=== PATIENT | female | born 1955 | race Caucasian/White ===

== ENCOUNTER 2019-11-18 13:52 | Inpatient (IN) | payer OTHER ==
[2019-11-18] MEDS ORDERED: DEXTROSE 50% SYRINGE 50 ML IVP STA (13:58)
[2019-11-18] MEDS ORDERED: NALOXONE 0.4 MG/ML 1 ML VIAL IVP STA (13:59)
[2019-11-18] MEDS ORDERED: PANTOPRAZOLE 40 MG/10 ML VIAL IVP STA (14:00)
[2019-11-18 14:02] LABS: Glucose,Whole Blood 49 mg/dL (75-99)
[2019-11-18 14:02] LABS: Glucose,Whole Blood 50 mg/dL (75-99)
--- NOTE | 2019-11-18 14:06 | ED ---
General Adult HPI - General Chief complaint: GI Bleed Stated complaint: Poss Stroke Time Seen by Provider: 11/18/19 13:58 Source: patient Mode of arrival: ambulatory Limitations: physical limitation - History of Present Illness Initial comments: Dictation was produced using [employer] dictation software. please excuse any grammatical, word or spelling errors. This patient was cared for during a federal and state declared state of emergency secondary to Covid 19 Chief Complaint: 63-year-old female brought in by EMS for generalized weakness. History of Present Illness: 63-year-old female she presents to emergency department via EMS for generalized weakness. Patient states she did feel weak for the last several days. Patient has had a GI bleed that has been managed outpatient for the last couple weeks. Patient is a poor historian at this time. EMS reports that patient had stable vitals. They're concerned about possible CVA given the patient has a history of CVA. Patient has any numbness to to the arms or legs. She states she feels very weak. Denies any pain complaints. Patient has a history of liver cirrhosis. She denies any vomiting. The ROS documented in this emergency department record has been reviewed and co nfirmed by me. Those systems with pertinent positive or negative responses have been documented in the HPI. All other systems are other negative and/or noncontributory. PHYSICAL EXAM: General Impression: Alert and oriented x3, pale, mottled skin, lethargic HEENT: Normocephalic atraumatic, extra-ocular movements intact, pupils equal and reactive to light bilaterally, mucous membranes moist. Cardiovascular: Heart regular rate and rhythm Chest: Able to complete full sentences, no retractions, no tachypnea Abdomen: abdomen soft, non-tender, non-distended, no organomegaly Musculoskeletal: Pulses present and equal in all extremities, no peripheral edema Motor: no focal deficits noted Neurological: CN II-XII grossly intact, no focal motor or sensory deficits noted Skin: Intact with no visualized rashes Psych: Normal affect and mood ED course: 63-year-old female presents to the emergency department for generalized weakness. Patient does not have any focal neurologic deficits. She is globally weak in her extremities. Vital signs upon arrival are within acceptable limits. [id number] blood glucose was 50. Patient ordered for some dextrose. She did have some mild pinpoint pupils. She is given Narcan with no effect. Rectal exam showed melanotic stool. Patient given Protonix.QT is prolonged. Medications reviewed. She does take hydrochlorothiazide. EKG interpretation: Ventricular rate 90, normal sinus rhythm,. Interval 112, QRS 78, QTc 566. No CT prolongation. EKG consistent with QT prolongation. Laboratory evaluation obtained. Leukocytosis of 18.4. Platelet count of 880. Coag panel shows INR of 2.1. Venous blood gas shows pH of 7.11, pCO2 of 30 with a bicarb of 9. Clinical presentation consistent with metabolic acidosis. Metabolic panel shows sodium 132. Bicarb of 8, anion gap 34, creatinine 1.89, BUN of 23. Glucose of 40. Lactic acidosis of 20.4. Ionized calcium 4.0. AST of 881, ALT of 165, alk phos of 199. So occult blood is positive. This x-ray is nonacute. Abdominal x-ray shows gaseous distention and hepatomegaly. Patient went into pulseless electrical activity. CPR was performed for approximately 4-6 minutes. She did receive 1 dose of epinephrine and 2 A of sodium bicarbonate. There was successful return of spontaneous circulation. She was intubated during that time. She did have emesis of translucent yellow material. At the time of return of spontaneous circulation patient appeared to be responsive and able to follow basic commands. Repeat EKG was obtained showing sinus tachycardia. Slightly from epinephrine administration. Case was discussed with Dr. Grant who is willing to accept patients care. He is conc erned that perhaps patient is suffering toxic effects from Tylenol. Patient started on propofol infusion for agitation. He has no other recommendations at this time except to give patient multiple ampules of bicarbonate and to start her on a bicarbonate infusion. And to set patient also had high ventilatory rate. Spoke with Dr. Ken [facility] who is aware patient. He doesn't have any recommendations except for supportive ICU care. Computed tomography scan of the brain was obtained showing old bilateral parietal cortical infarct. Computed tomography scan of the abdomen and pelvis without contrast was obtained showing pneumoperitoneum, moderate abdominal ascites small bowel ileus. Secondary labs are obtained. Repeat metabolic panel shows bicarb of 11 with an anion gap of 26. Liver markers greatly elevated. Tylenol over 57.9. Pending discussion with poison control. Dr. Grant was bedside helping to manage patient. General surgeon is consulted for pne umoperitoneum. Patient given Mucomyst for the time being due to elevated Tylenol level. Patient did not give me the reason that she had any significant acute ingestion or suicidal attempt with Tylenol overdose. This is likely if anything a chronic Tylenol ingestion. - Related Data Home Medications Medication Instructions Recorded Confirmed Lisinopril-Hctz 20-12.5 mg 1 tab PO DAILY 03/07/14 11/18/19 [Zestoretic 20-12.5] Albuterol Sulfate [Albuterol 2 puff PO RT-Q4H PRN 11/18/19 11/18/19 Sulfate Hfa] Pantoprazole Sodium [Protonix] 40 mg PO DAILY 11/18/19 11/18/19 Allergies Allergy/AdvReac Type Severity Reaction Status Date / Time No Known Allergies Allergy Verified 11/18/19 16:05 Review of Systems ROS Statement: Those systems with pertinent positive or pertinent negative responses have been documented in the HPI. ROS Other: All systems not noted in ROS Statement are negative. Past Medical History Past Medical History: Hypertension Additional Past Medical History / Comment(s): breast cancer History of Any Multi-Drug Resistant Organisms: None Reported Additional Past Surgical History / Comment(s): left mastectomy Past Psychological History: Depression Past Alcohol Use History: Rare Past Drug Use History: None Reported General Exam Limitations: physical limitation Course Vital Signs 11/18/19 11/18/19 11/18/19 13:54 13:59 16:13 Temperature 98.2 F Pulse Rate 96 107 H Respiratory 18 16 28 H Rate Blood Pressure 132/78 68/45 O2 Sat by Pulse 99 98 Oximetry 11/18/19 11/18/19 11/18/19 16:18 16:41 17:58 Temperature Pulse Rate 106 H Respiratory 30 H Rate Blood Pressure 84/55 73/47 130/62 O2 Sat by Pulse 99 Oximetry 11/18/19 18:05 Temperature Pulse Rate 105 H Respiratory 30 H Rate Blood Pressure 119/69 O2 Sat by Pulse 99 Oximetry Procedures - Central Line Placement Left IJ Consent Obtained: verbal consent, emergent situation Patient Placed on Monitor/Pulse Ox: Yes Prep: mask, gown, gloves Central Line Prep: Povidone-Iodine 1%, Chlorhexidine scrub Ultrasound Used for Placement: Yes Central Line Lumen Inserted: triple Bloods Obtained for Lab: Yes Central Line Position: good blood return Dressing Applied: Tegaderm Post Procedure X-Ray: tip of catheter in good position Patient Tolerated Procedure: well Complications: none - Intubation Laryngoscope: Reese Size: 4 ET Tube Size: 7.5 ET Tube Uncuffed: Yes Tube Secured Depth (cm): 23 Tube Placement Confirmation: visualized tube passing through cords, equal breath sounds bilaterally, confirmation by capnometry Patient Tolerated Procedure: well Intubation Complications: none Medical Decision Making - Lab Data Result diagrams: 11/18/19 14:04 11/18/19 15:20 Lab Results 11/18/19 11/18/19 11/18/19 Range/Units 13:57 13:59 14:04 WBC 18.4 H (3.8-10.6) k/uL RBC 4.18 (3.80-5.40) m/uL Hgb 12.2 (11.4-16.0) gm/dL Hct 40.1 (34.0-46.0) % MCV 95.9 (80.0-100.0) fL MCH 29.3 (25.0-35.0) pg MCHC 30.5 L (31.0-37.0) g/dL RDW 12.8 (11.5-15.5) % Plt Count 880 H (150-450) k/uL Neutrophils % 90 % Lymphocytes % 5 % Monocytes % 4 % Eosinophils % 1 % Basophils % 0 % Neutrophils # 16.4 H (1.3-7.7) k/uL Lymphocytes # 0.9 L (1.0-4.8) k/uL Monocytes # 0.8 (0-1.0) k/uL Eosinophils # 0.1 (0-0.7) k/uL Basophils # 0.1 (0-0.2) k/uL Manual Slide Review Performed Hypochromasia Marked Poikilocytosis (manual Present PT (9.0-12.0) sec INR (<1.2) APTT (22.0-30.0) sec VBG pH (7.31-7.41) VBG pCO2 (37-51) mmHg VBG HCO3 (24-28) mmol/L Sodium (137-145) mmol/L Potassium (3.5-5.1) mmol/L Chloride (98-107) mmol/L Carbon Dioxide (22-30) mmol/L Anion Gap mmol/L BUN (7-17) mg/dL Creatinine (0.52-1.04) mg/dL Est GFR (CKD-EPI)AfAm (>60 ml/min/1.73 sqM) Est GFR (CKD-EPI)NonAf (>60 ml/min/1.73 sqM) Glucose (74-99) mg/dL POC Glucose (mg/dL) 50 L 49 L (75-99) mg/dL POC Glu [employer] Physiological Technician Vinny Erickson Daniel Osmolality (280-301) mosm/kg Lactic Ac Sepsis Rflx Plasma Lactic Acid Nakul (0.7-2.0) mmol/L Calcium (8.4-10.2) mg/dL Ionized Calcium Omid (4.5-5.3) mg/dL Magnesium (1.6-2.3) mg/dL Total Bilirubin (0.2-1.3) mg/dL AST (14-36) U/L ALT (4-34) U/L Alkaline Phosphatase (38-126) U/L Ammonia (<30) umol/L Troponin I (0.000-0.034) ng/mL Total Protein (6.3-8.2) g/dL Albumin (3.5-5.0) g/dL Stool Occult Blood (Negative) Salicylates mg/dL Acetaminophen ug/mL Serum Alcohol mg/dL Blood Type Blood Type Confirm Blood Type Recheck Bld Type Recheck Status Antibody Screen Spec Expiration Date 11/18/19 11/18/19 11/18/19 Range/Units 14:04 14:04 14:04 WBC (3.8-10.6) k/uL RBC (3.80-5.40) m/uL Hgb (11.4-16.0) gm/dL Hct (34.0-46.0) % MCV (80.0-100.0) fL MCH (25.0-35.0) pg MCHC (31.0-37.0) g/dL RDW (11.5-15.5) % Plt Count (150-450) k/uL Neutrophils % % Lymphocytes % % Monocytes % % Eosinophils % % Basophils % % Neutrophils # (1.3-7.7) k/uL Lymphocytes # (1.0-4.8) k/uL Monocytes # (0-1.0) k/uL Eosinophils # (0-0.7) k/uL Basophils # (0-0.2) k/uL Manual Slide Review Hypochromasia Poikilocytosis (manual PT (9.0-12.0) sec INR (<1.2) APTT (22.0-30.0) sec VBG pH (7.31-7.41) VBG pCO2 (37-51) mmHg VBG HCO3 (24-28) mmol/L Sodium 132 L (137-145) mmol/L Potassium 4.5 (3.5-5.1) mmol/L Chloride 90 L (98-107) mmol/L Carbon Dioxide 8 L* (22-30) mmol/L Anion Gap 34 mmol/L BUN 23 H (7-17) mg/dL Creatinine 1.89 H (0.52-1.04) mg/dL Est GFR (CKD-EPI)AfAm 33 (>60 ml/min/1.73 sqM) Est GFR (CKD-EPI)NonAf 28 (>60 ml/min/1.73 sqM) Glucose 40 L* (74-99) mg/dL POC Glucose (mg/dL) (75-99) mg/dL POC Glu Aerospace Physiological Technician ID Osmolality (280-301) mosm/kg Lactic Ac Sepsis Rflx Plasma Lactic Acid Nakul 20.4 H* (0.7-2.0) mmol/L Calcium 8.8 (8.4-10.2) mg/dL Ionized Calcium Omid (4.5-5.3) mg/dL Magnesium 2.9 H (1.6-2.3) mg/dL Total Bilirubin 1.3 (0.2-1.3) mg/dL AST 881 H (14-36) U/L ALT 165 H (4-34) U/L Alkaline Phosphatase 199 H (38-126) U/L Ammonia 21 (<30) umol/L Troponin I (0.000-0.034) ng/mL Total Protein 5.0 L (6.3-8.2) g/dL Albumin 2.7 L (3.5-5.0) g/dL Stool Occult Blood (Negative) Salicylates mg/dL Acetaminophen ug/mL Serum Alcohol mg/dL Blood Type A Positive Blood Type Confirm Blood Type Recheck No Previous Record Bld Type Recheck Status CABO Indicated Antibody Screen NEGATIVE Spec Expiration Date 11/21/2019 - 230311/18/19 11/18/19 11/18/19 Range/Units 14:04 14:04 14:04 WBC (3.8-10.6) k/uL RBC (3.80-5.40) m/uL Hgb (11.4-16.0) gm/dL Hct (34.0-46.0) % MCV (80.0-100.0) fL MCH (25.0-35.0) pg MCHC (31.0-37.0) g/dL RDW (11.5-15.5) % Plt Count (150-450) k/uL Neutrophils % % Lymphocytes % % Monocytes % % Eosinophils % % Basophils % % Neutrophils # (1.3-7.7) k/uL Lymphocytes # (1.0-4.8) k/uL Monocytes # (0-1.0) k/uL Eosinophils # (0-0.7) k/uL Basophils # (0-0.2) k/uL Manual Slide Review Hypochromasia Poikilocytosis (manual PT 20.3 H (9.0-12.0) sec INR 2.1 H (<1.2) APTT 27.9 (22.0-30.0) sec VBG pH (7.31-7.41) VBG pCO2 (37-51) mmHg VBG HCO3 (24-28) mmol/L Sodium (137-145) mmol/L Potassium (3.5-5.1) mmol/L Chloride (98-107) mmol/L Carbon Dioxide (22-30) mmol/L Anion Gap mmol/L BUN (7-17) mg/dL Creatinine (0.52-1.04) mg/dL Est GFR (CKD-EPI)AfAm (>60 ml/min/1.73 sqM) Est GFR (CKD-EPI)NonAf (>60 ml/min/1.73 sqM) Glucose (74-99) mg/dL POC Glucose (mg/dL) (75-99) mg/dL POC Glu Aerospace Physiological Technician ID Osmolality (280-301) mosm/kg Lactic Ac Sepsis Rflx Plasma Lactic Acid Nakul (0.7-2.0) mmol/L Calcium (8.4-10.2) mg/dL Ionized Calcium Omid (4.5-5.3) mg/dL Magnesium (1.6-2.3) mg/dL Total Bilirubin (0.2-1.3) mg/dL AST (14-36) U/L ALT (4-34) U/L Alkaline Phosphatase (38-126) U/L Ammonia (<30) umol/L Troponin I <0.012 (0.000-0.034) ng/mL Total Protein (6.3-8.2) g/dL Albumin (3.5-5.0) g/dL Stool Occult Blood Positive H (Negative) Salicylates mg/dL Acetaminophen ug/mL Serum Alcohol mg/dL Blood Type Blood Type Confirm Blood Type Recheck Bld Type Recheck Status Antibody Screen Spec Expiration Date 11/18/19 11/18/19 11/18/19 Range/Units 14:04 14:12 14:13 WBC (3.8-10.6) k/uL RBC (3.80-5.40) m/uL Hgb (11.4-16.0) gm/dL Hct (34.0-46.0) % MCV (80.0-100.0) fL MCH (25.0-35.0) pg MCHC (31.0-37.0) g/dL RDW (11.5-15.5) % Plt Count (150-450) k/uL Neutrophils % % Lymphocytes % % Monocytes % % Eosinophils % % Basophils % % Neutrophils # (1.3-7.7) k/uL Lymphocytes # (1.0-4.8) k/uL Monocytes # (0-1.0) k/uL Eosinophils # (0-0.7) k/uL Basophils # (0-0.2) k/uL Manual Slide Review Hypochromasia Poikilocytosis (manual PT (9.0-12.0) sec INR (<1.2) APTT (22.0-30.0) sec VBG pH 7.11 L* (7.31-7.41) VBG pCO2 30 L (37-51) mmHg VBG HCO3 9 L* (24-28) mmol/L Sodium (137-145) mmol/L Potassium (3.5-5.1) mmol/L Chloride (98-107) mmol/L Carbon Dioxide (22-30) mmol/L Anion Gap mmol/L BUN (7-17) mg/dL Creatinine (0.52-1.04) mg/dL Est GFR (CKD-EPI)AfAm (>60 ml/min/1.73 sqM) Est GFR (CKD-EPI)NonAf (>60 ml/min/1.73 sqM) Glucose (74-99) mg/dL POC Glucose (mg/dL) 297 H (75-99) mg/dL POC Glu Aerospace Physiological Technician ID Nat Oliveira Osmolality (280-301) mosm/kg Lactic Ac Sepsis Rflx Plasma Lactic Acid Nakul (0.7-2.0) mmol/L Calcium (8.4-10.2) mg/dL Ionized Calcium Omid 4.0 L (4.5-5.3) mg/dL Magnesium (1.6-2.3) mg/dL Total Bilirubin (0.2-1.3) mg/dL AST (14-36) U/L ALT (4-34) U/L Alkaline Phosphatase (38-126) U/L Ammonia (<30) umol/L Troponin I (0.000-0.034) ng/mL Total Protein (6.3-8.2) g/dL Albumin (3.5-5.0) g/dL Stool Occult Blood (Negative) Salicylates mg/dL Acetaminophen ug/mL Serum Alcohol mg/dL Blood Type Blood Type Confirm Blood Type Recheck Bld Type Recheck Status Antibody Screen Spec Expiration Date 11/18/19 11/18/19 11/18/19 Range/Units 14:55 15:11 15:17 WBC (3.8-10.6) k/uL RBC (3.80-5.40) m/uL Hgb (11.4-16.0) gm/dL Hct (34.0-46.0) % MCV (80.0-100.0) fL MCH (25.0-35.0) pg MCHC (31.0-37.0) g/dL RDW (11.5-15.5) % Plt Count (150-450) k/uL Neutrophils % % Lymphocytes % % Monocytes % % Eosinophils % % Basophils % % Neutrophils # (1.3-7.7) k/uL Lymphocytes # (1.0-4.8) k/uL Monocytes # (0-1.0) k/uL Eosinophils # (0-0.7) k/uL Basophils # (0-0.2) k/uL Manual Slide Review Hypochromasia Poikilocytosis (manual PT (9.0-12.0) sec INR (<1.2) APTT (22.0-30.0) sec VBG pH (7.31-7.41) VBG pCO2 (37-51) mmHg VBG HCO3 (24-28) mmol/L Sodium (137-145) mmol/L Potassium (3.5-5.1) mmol/L Chloride (98-107) mmol/L Carbon Dioxide (22-30) mmol/L Anion Gap mmol/L BUN (7-17) mg/dL Creatinine (0.52-1.04) mg/dL Est GFR (CKD-EPI)AfAm (>60 ml/min/1.73 sqM) Est GFR (CKD-EPI)NonAf (>60 ml/min/1.73 sqM) Glucose (74-99) mg/dL POC Glucose (mg/dL) 172 H (75-99) mg/dL POC Glu Aerospace Physiological Technician ID Nat Oliveira Osmolality (280-301) mosm/kg Lactic Ac Sepsis Rflx Y Plasma Lactic Acid Nakul (0.7-2.0) mmol/L Calcium (8.4-10.2) mg/dL Ionized Calcium Omid (4.5-5.3) mg/dL Magnesium (1.6-2.3) mg/dL Total Bilirubin (0.2-1.3) mg/dL AST (14-36) U/L ALT (4-34) U/L Alkaline Phosphatase (38-126) U/L Ammonia (<30) umol/L Troponin I (0.000-0.034) ng/mL Total Protein (6.3-8.2) g/dL Albumin (3.5-5.0) g/dL Stool Occult Blood (Negative) Salicylates mg/dL Acetaminophen ug/mL Serum Alcohol mg/dL Blood Type Blood Type Confirm A Positive Blood Type Recheck Bld Type Recheck Status Antibody Screen Spec Expiration Date 11/18/19 Range/Units 15:20 WBC (3.8-10.6) k/uL RBC (3.80-5.40) m/uL Hgb (11.4-16.0) gm/dL Hct (34.0-46.0) % MCV (80.0-100.0) fL MCH (25.0-35.0) pg MCHC (31.0-37.0) g/dL RDW (11.5-15.5) % Plt Count (150-450) k/uL Neutrophils % % Lymphocytes % % Monocytes % % Eosinophils % % Basophils % % Neutrophils # (1.3-7.7) k/uL Lymphocytes # (1.0-4.8) k/uL Monocytes # (0-1.0) k/uL Eosinophils # (0-0.7) k/uL Basophils # (0-0.2) k/uL Manual Slide Review Hypochromasia Poikilocytosis (manual PT (9.0-12.0) sec INR (<1.2) APTT (22.0-30.0) sec VBG pH (7.31-7.41) VBG pCO2 (37-51) mmHg VBG HCO3 (24-28) mmol/L Sodium 134 L (137-145) mmol/L Potassium 3.8 (3.5-5.1) mmol/L Chloride 97 L (98-107) mmol/L Carbon Dioxide 11 L (22-30) mmol/L Anion Gap 26 mmol/L BUN 21 H (7-17) mg/dL Creatinine 1.84 H (0.52-1.04) mg/dL Est GFR (CKD-EPI)AfAm 34 (>60 ml/min/1.73 sqM) Est GFR (CKD-EPI)NonAf 29 (>60 ml/min/1.73 sqM) Glucose 74 (74-99) mg/dL POC Glucose (mg/dL) (75-99) mg/dL POC Glu Aerospace Physiological Technician ID Osmolality 300 (280-301) mosm/kg Lactic Ac Sepsis Rflx Plasma Lactic Acid Nakul (0.7-2.0) mmol/L Calcium 7.2 L (8.4-10.2) mg/dL Ionized Calcium Omid (4.5-5.3) mg/dL Magnesium (1.6-2.3) mg/dL Total Bilirubin 0.7 (0.2-1.3) mg/dL AST 1214 H (14-36) U/L ALT 226 H (4-34) U/L Alkaline Phosphatase 140 H (38-126) U/L Ammonia (<30) umol/L Troponin I (0.000-0.034) ng/mL Total Protein 3.3 L (6.3-8.2) g/dL Albumin 1.7 L (3.5-5.0) g/dL Stool Occult Blood (Negative) Salicylates 1.7 mg/dL Acetaminophen 57.9 H* ug/mL Serum Alcohol <10 mg/dL Blood Type Blood Type Confirm Blood Type Recheck Bld Type Recheck Status Antibody Screen Spec Expiration Date Critical Care Time Critical Care Time: Yes Total Critical Care Time: 74 Disposition Clinical Impression: Cardiac arrest, In critical condition Disposition: ADMITTED IP TO THIS [facility] Condition: Critical Decision Time: 18:08
[2019-11-18 14:13] LABS: Glucose,Whole Blood 297 mg/dL (75-99)
--- NOTE | 2019-11-18 14:33 | XR ---
EXAMINATION TYPE: XR abdomen 1V DATE OF EXAM: 11/18/2019 2:21 PM CLINICAL HISTORY: Weakness, abdominal pain TECHNIQUE: Portable supine images of the abdomen and pelvis were obtained COMPARISON: None. FINDINGS: There is gaseous distention of the stomach. The remaining bowel gas pattern is nonspecific. Hepatomegaly. Degenerative changes of the spine. IMPRESSION: 1. Gaseous distention of the stomach. Remaining bowel gas pattern is nonspecific. 2. Hepatomegaly.
--- NOTE | 2019-11-18 14:34 | XR ---
EXAMINATION TYPE: XR chest 1V portable DATE OF EXAM: 11/18/2019 CLINICAL HISTORY: Weakness, abdominal pain TECHNIQUE: Portable upright view of the chest obtained COMPARISON: 02/03/2011 chest radiograph FINDINGS: The cardiomediastinal silhouette is within normal limits for size. Pulmonary vasculature i s normal. There is no focal air space opacity, pleural effusion, or pneumothorax seen. Old right-side d rib deformity. IMPRESSION: No acute cardiopulmonary process.
[2019-11-18 14:35] LABS: INR 2.1 (<1.2); Partial Thromboplastin Time 27.9 sec (22.0-30.0); Prothrombin Time 20.3 sec (9.0-12.0)
[2019-11-18 14:37] LABS: Basophils # (A) 0.1 k/uL (0-0.2); Basophils % (A) 0 %; Eosinophils # (A) 0.1 k/uL (0-0.7); Eosinophils % (A) 1 %; HCT 40.1 % (34.0-46.0); HGB 12.2 gm/dL (11.4-16.0); Hypochromasia Marked; Lymphocytes # (A) 0.9 k/uL (1.0-4.8); Lymphocytes % (A) 5 %; MCH 29.3 pg (25.0-35.0); MCHC 30.5 g/dL (31.0-37.0); MCV 95.9 fL (80.0-100.0); Mean Platelet Volume 7.7; Monocytes # (A) 0.8 k/uL (0-1.0); Monocytes % (A) 4 %; Neutrophils # (A) 16.4 k/uL (1.3-7.7); Neutrophils % (A) 90 %; Platelet Count 880 k/uL (150-450); RBC 4.18 m/uL (3.80-5.40); RDW 12.8 % (11.5-15.5); WBC 18.4 k/uL (3.8-10.6)
[2019-11-18 14:38] LABS: VBG PH 7.11 (7.31-7.41)
[2019-11-18] MEDS ORDERED: SODIUM CHLORIDE 0.9% 1,000 ML IV STA ×2 (14:42→14:58)
[2019-11-18] MEDS ORDERED: VANCOMYCIN IV PER PHARMACY 1 EACH MISC MISCELLANE PRN (14:44)
[2019-11-18] MEDS ORDERED: PIPERACILLIN-TAZOBACTAM 3.375 GM in SODIUM CHLORIDE 0.9% 100 ML IVPB STA (14:44)
[2019-11-18 14:49] VITALS: TEMP 98.2
[2019-11-18 14:49] LABS: Albumin 2.7 g/dL (3.5-5.0); Calcium 8.8 mg/dL (8.4-10.2); Magnesium 2.9 mg/dL (1.6-2.3); Potassium 4.5 mmol/L (3.5-5.1); Total Bilirubin 1.3 mg/dL (0.2-1.3)
[2019-11-18 14:55] LABS: Lactic Acid, Venous 20.4 mmol/L (0.7-2.0)
[2019-11-18] MEDS ORDERED: CALCIUM GLUCONATE 1 GM in SODIUM CHLORIDE 0.9% 100 ML IVPB ONE (15:00)
[2019-11-18 15:12] LABS: Glucose,Whole Blood 172 mg/dL (75-99)
[2019-11-18 15:21] LABS: Poikilocytosis (M) Present
[2019-11-18] MEDS ORDERED: ATROPINE SULFATE 0.1 MG/ML 10ML SYRINGE ONE (15:27)
[2019-11-18] MEDS ORDERED: SODIUM BICARB 8.4% 50 ML SYR (1 MEQ/ML) ONE ×2 (15:27→18:41)
[2019-11-18] MEDS ORDERED: EPINEPHrine 10 ML SYRINGE (0.1 MG/ML) ONE (15:27)
[2019-11-18] MEDS ORDERED: VANCOMYCIN 1,250 MG in SODIUM CHLORIDE 0.9% 250 ML IVPB ONE (15:30)
[2019-11-18] MEDS ORDERED: SODIUM BICARB 8.4% 50 ML SYR (1 MEQ/ML) IV STA (15:56)
[2019-11-18] MEDS ORDERED: WATER FOR INJECTION, STERILE 1,000 ML with SODIUM ACETATE 150 MEQ IV SCH ×2 (16:00)
[2019-11-18] MEDS ORDERED: NALOXONE 0.4 MG/ML 1 ML VIAL IV PRN (16:02)
[2019-11-18 16:11] LABS: Glucose,Whole Blood 97 mg/dL (75-99)
--- NOTE | 2019-11-18 16:12 | XR ---
EXAMINATION TYPE: XR chest 1V portable DATE OF EXAM: 11/18/2019 CLINICAL HISTORY: Intubation. Endotracheal and orogastric tube placement. TECHNIQUE: Portable supine view of the chest. COMPARISON: 11/18/2019 chest radiograph at 2:20 PM FINDINGS: Endotracheal tube distal tip 4.6 cm from the chasidy, midway between the chasidy and clavicu lar heads. Enteric tube distal tip and side-port over the left upper quadrant projected area of the s tomach. The cardiomediastinal silhouette is within normal limits for size. There is asymmetric opacif ication of the right hemithorax, new from comparison at 2:20 PM today. Supine technique limits evalua tion for pneumothorax. Old right-sided rib fracture. IMPRESSION: 1. Endotracheal tube distal tip 4.6 cm from the chasidy. 2. Enteric tube distal tip and side-port over the stomach. 3. Increased asymmetric opacities of the right hemithorax, new from comparison today at 2:20 PM.
[2019-11-18] MEDS ORDERED: DEXTROSE 5% IN WATER 1,000 ML with SODIUM BICARB (1 MEQ/ML) 150 ML IV SCH (16:30)
[2019-11-18] MEDS ORDERED: NOREPINEPHRINE 4 MG in SODIUM CHLORIDE 0.9% 250 ML IV ONE (16:42)
[2019-11-18 16:46] LABS: African American GFR (CKD) 34 (>60 ml/min/1.73 sqM); Albumin 1.7 g/dL (3.5-5.0); Alcohol <10 mg/dL; Alkaline Phosphatase 140 U/L (38-126); Anion Gap 26 mmol/L; Blood Urea Nitrogen 21 mg/dL (7-17); Calcium 7.2 mg/dL (8.4-10.2); Carbon Dioxide 11 mmol/L (22-30); Chloride 97 mmol/L (98-107); Glucose 74 mg/dL (74-99); Non-African American GFR(CKD) 29 (>60 ml/min/1.73 sqM); Potassium 3.8 mmol/L (3.5-5.1); Salicylate 1.7 mg/dL; Sodium 134 mmol/L (137-145); Total Bilirubin 0.7 mg/dL (0.2-1.3); Total Protein 3.3 g/dL (6.3-8.2)
[2019-11-18 16:55] LABS: ALT 226 U/L (4-34); AST 1214 U/L (14-36); Acetaminophen 57.9 ug/mL
[2019-11-18] MEDS ORDERED: NOREPINEPHRINE 32 MG in SODIUM CHLORIDE 0.9% 218 ML IV SCH (17:00)
--- NOTE | 2019-11-18 17:29 | CT ---
EXAMINATION TYPE: CT abdomen pelvis wo con DATE OF EXAM: 11/18/2019 COMPARISON: None HISTORY: Patient intubated at time of scan. CT DLP: 525.1 mGycm Automated exposure control for dose reduction was used. Images obtained from the diaphragm to the floor the pelvis with no contrast. There is some infiltrate and atelectasis right lung base. There is minimal atelectasis left lung base . Heart size is normal. There is no pericardial effusion. There is moderate abdominal ascites fluid throughout the abdomen. Fluid has density of 15 which is co nsistent with nonhemorrhagic fluid. There is NG tube in the tip of the tube appears to be almost outside of the stomach perforating the a nterior wall. There is a moderate pneumoperitoneum. There is free air on the anterior abdominal wall extending down into the pelvis. There is small inguinal hernia on the left side. There is Farah artis ter in the bladder. Bladder is empty. There are small calcified uterine fibroids. I see no significan t intestinal wall thickening. Exam limited by lack of contrast. There is a single loop of small bowel mildly dilated up to 3 cm in the left mid abdomen. I see no sign of intramural air in the bowel. There are spondylotic changes in the lumbar spine with disc space narrowing from L2 to L5 and spur fo rmation. I see no bony destructive process. Bony pelvis is intact. There is no evidence of pancreatic mass. There is no adrenal mass. Kidneys have normal size. I see no definite hydronephrosis. Ureters do not appear dilated. There is some mild spinal stenosis at L4-5 d ue to facet arthropathy. IMPRESSION: There is pneumoperitoneum. There is moderate abdominal ascites fluid that appears to be nonhemorrhagi c. Possible perforation of the anterior wall of the stomach with the NG tube. There is probably some small bowel ileus. Mild infiltrate and atelectasis at the lung bases. This exam was discussed with ER physician at 5:30 PM.
--- NOTE | 2019-11-18 17:35 | CT ---
EXAMINATION TYPE: CT brain wo con DATE OF EXAM: 11/18/2019 COMPARISON: None HISTORY: Patient intubated at time of scan. CT DLP: 1142 mGycm Automated exposure control for dose reduction was used. There is mild cerebral atrophy. There is no mass effect nor midline shift. There is no sign of intrac ranial hemorrhage. There is 4 x 1.5 cm old infarct right parietal lobe. There is also a small 2.5 cm cortical infarct left posterior parietal lobe. There is mucosal thickening in the maxillary sinuses. Calvarium is intact. There are fluid levels in the sphenoid sinuses. 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 No acute intracranial abnormality. Sphenoid and maxillary si nusitis.
[2019-11-18] MEDS ORDERED: SODIUM CHLORIDE 0.9% 2,000 ML IV ONE (17:36)
[2019-11-18 17:43] LABS: Glucose,Whole Blood 67 mg/dL (75-99)
[2019-11-18 17:44] LABS: ABG Base Excess -22.1 mmol/L; ABG Oxygen Saturation 98.7 % (94-97); ABG PCO2 30 mmHg (35-45); ABG PO2 >400 mmHg (83-108); ABG TCO2 9 mmol/L (19-24); Allen Test Performed? Yes
[2019-11-18 17:46] LABS: ABG HCO3 8 mmol/L (21-25); ABG PH 7.05 (7.35-7.45)
--- NOTE | 2019-11-18 18:02 | P.CNPUL ---
History of Present Illness Consult date: 11/18/19 Chief complaint: Shock History of present illness: 63-year-old female patient presented to the ED with generalized weakness. She started gradually getting weak over the past few days and the patient has been having melanotic stools on outpatient basis. I was unable to interview the patient myself as the patient was already intubated on a mechanical ventilator by the time I arrival to the ED. In summary, the patient was alert and awake when she came in. She was lethargic. She did not complain of any abdominal pain. She was having generalized weakness. No history of any liver disease. Upon arrival, the labs are quite abnormal. She had a white cell count of 18.4. Platelet count was 880. Hemoglobin was at 12.2. She was coagulopathic with a PT of 20, INR of 2.1, PTT of 27. A venous blood gas showed a pH of 7.1 with a pCO2 of 30. Her lactic acid level was 24. BUN was 21 with a creatinine of 1.8 and a anion gap metabolic acidosis with an anion gap of 26. The blood sugar was 40. Calcium level and eyes was 4.0. Albumin was 1.7 with a total protein of 3.3. The AST was 1214, ALT was 226 and alkaline phosphatase was 140. The patient during the course of her treatment here in the ED, she had a acute cardiopulmonary arrest. She went into a PEA where she lost her pulse. We will resuscitation processes was around 3-4 minutes during which the patient received 1 dose of epinephrine and CPR. The total CPR time was around 4 minutes and following that there was erythematous with a circulation. She subsequently and upon being IV fluids and pressors. A triple lumen catheter was inserted. She was given 50 mEq of sodium bicarbonate 3 and she was also given calcium gluconate. Resuscitation was continued IV fluids and currently we are at the point where the patient is currently intubated on a mechanical ventilator and I have an assist-control mode at the rate of 30 with either volume of 500 and FiO2 100% with a PEEP of 5 and she is receiving IV fluid boluses with intention of at least giving her 3 or 4 L and she is also on propofol running at 30 mg per KG per minute and norepinephrine infusion running at 30 g per minute. A stat CAT scan of the abdomen and pelvis and neck CAT scan of the brain was done. 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 No acute abnormalities was noted. CAT scan of the abdomen showed moderate abdominal ascites and fluid throughout the abdomen. Fluid density was 15 consistent with nonhemorrhagic fluid. NG tube Was seen outside the stomach perforating the anterior wall. There is evidence of moderate amount of pneumoperitoneum. There was free air in the anterior abdominal wall extending down to the pelvis. There was also a small inguinal hernia on the left. There was a Farah cath in the bladder. Bladder was empty. There was a calcified uterine fibroids. No significant intestinal wall thickening. The patient has a Farah catheter in place. Urine output is almost none at this point in time. Patient was given a dose of Zosyn and vancomycin. NG tube pulled back as the patient's NG tube was draining fecal brownish material. And a surgical consultation was obtained and Dr. Teixeira was informed of this changes. Note that post intubation, the patient was aspirated. ET tube was seen 4.6 cm above the chasidy. There was increased asymmetric opacity in the right hemithorax possibly related to an underlying aspiration. Of significance also with elevated salicylate level of 1.7 and Tylenol level of 57.9. Serum alcohol was negative. A triple lumen catheter was established in the left IJ. No flank Was also inserted in the right femoral artery. Review of Systems ROS unobtainable: due to endotracheal tube Past Medical History Past Medical History: Hypertension Additional Past Medical History / Comment(s): breast cancer History of Any Multi-Drug Resistant Organisms: None Reported Additional Past Surgical History / Comment(s): left mastectomy Past Psychological History: Depression Past Alcohol Use History: Rare Past Drug Use History: None Reported Medications and Allergies Home Medications Medication Instructions Recorded Confirmed Type Lisinopril-Hctz 20-12.5 mg 1 tab PO DAILY 03/07/14 11/18/19 History [Zestoretic 20-12.5] Albuterol Sulfate [Albuterol 2 puff PO RT-Q4H PRN 11/18/19 11/18/19 History Sulfate Hfa] Pantoprazole Sodium [Protonix] 40 mg PO DAILY 11/18/19 11/18/19 History Allergies Allergy/AdvReac Type Severity Reaction Status Date / Time No Known Allergies Allergy Verified 11/18/19 16:05 Physical Exam Vitals: Vital Signs Temp Pulse Resp BP Pulse Ox 11/18/19 16:41 73/47 11/18/19 16:18 84/55 11/18/19 16:13 107 H 28 H 68/45 98 11/18/19 13:59 16 11/18/19 13:54 98.2 F 96 18 132/78 99 Intake and Output 11/18/19 11/18/19 11/18/19 06:59 14:59 22:59 Intake Total 2.121 Balance 2.121 Intake: Intake, IV Titration 2.121 Amount Norepinephrine 32 mg In 0.784 Sodium Chloride 0.9% 218 ml @ 0.05 MCG/KG/MIN 1. 425 mls/hr IV .Q[facility]H [facility] Rx#:[id number] propofoL 1,000 mg In 1.337 Empty Bag 1 bag @ Titrate IV .Q0M ONE Rx#: [id number] Other: Weight 60.781 kg Unresponsive intubated on a mechanical ventilator sedated and the patient has an orogastric and orotracheal tube are both of them are in place. Head exam was generally normal. There was no scleral icterus or corneal arcus. Mucous membranes were moist. Neck was supple and without jugular venous distension, thyromegaly, or carotid bruits. Carotids were easily palpable bilaterally. There was no adenopathy. Lungs sounds are diminished otherwise breath sounds equal and symmetrical. No wheezes or rhonchi any crackles. Cardiac exam revealed the PMI to be normally situated and sized. The rhythm was regular and no extrasystoles were noted during several minutes of auscultation. The first and second heart sounds were normal and physiologic splitting of the second heart sound was noted. There were no murmurs, rubs, clicks, or gallops. Abdomen is slightly firm to direct palpation. No guarding. No ascites. No organomegaly could be a appreciated and the patient has no bowel sounds at this point in time. Extremities are mottled and cold and clammy with diminished pulses in all 4 extr emities. No cyanosis. No clubbing. Neurologically the patient is sedated. Pupils are about 4-5 mm in size and they're sluggishly reactive to light. No facial asymmetry. Motor and sensory functions cannot be assessed. She is also on propofol at this point in time. Examination of the skin revealed no evidence of significant rashes, suspicious appearing nevi or other concerning lesions. Results - Laboratory Findings CBC and BMP: 11/18/19 14:04 11/18/19 15:20 ABG ABG pH 7.05 (7.35-7.45) L* 11/18/19 17:41 ABG pCO2 30 mmHg (35-45) L 11/18/19 17:41 ABG pO2 >400 mmHg (83-108) H 11/18/19 17:41 ABG O2 Saturation 98.7 % (94-97) H 11/18/19 17:41 PT/INR, D-dimer PT 20.3 sec (9.0-12.0) H 11/18/19 14:04 INR 2.1 (<1.2) H 11/18/19 14:04 Abnormal lab findings: Abnormal Labs 11/18/19 11/18/19 11/18/19 13:57 13:59 14:04 WBC 18.4 H MCHC 30.5 L Plt Count 880 H Neutrophils # 16.4 H Lymphocytes # 0.9 L PT INR ABG pH ABG pCO2 ABG pO2 ABG HCO3 ABG Total CO2 ABG O2 Saturation VBG pH VBG pCO2 VBG HCO3 Sodium Chloride Carbon Dioxide BUN Creatinine Glucose POC Glucose (mg/dL) 50 L 49 L Plasma Lactic Acid Nakul Calcium Ionized Calcium Omid Magnesium AST ALT Alkaline Phosphatase Total Protein Albumin Stool Occult Blood Acetaminophen 11/18/19 11/18/19 11/18/19 14:04 14:04 14:04 WBC MCHC Plt Count Neutrophils # Lymphocytes # PT INR ABG pH ABG pCO2 ABG pO2 ABG HCO3 ABG Total CO2 ABG O2 Saturation VBG pH VBG pCO2 VBG HCO3 Sodium 132 L Chloride 90 L Carbon Dioxide 8 L* BUN 23 H Creatinine 1.89 H Glucose 40 L* POC Glucose (mg/dL) Plasma Lactic Acid Nakul 20.4 H* Calcium Ionized Calcium Omid Magnesium 2.9 H AST 881 H ALT 165 H Alkaline Phosphatase 199 H Total Protein 5.0 L Albumin 2.7 L Stool Occult Blood Positive H Acetaminophen 11/18/19 11/18/19 11/18/19 14:04 14:04 14:12 WBC MCHC Plt Count Neutrophils # Lymphocytes # PT 20.3 H INR 2.1 H ABG pH ABG pCO2 ABG pO2 ABG HCO3 ABG Total CO2 ABG O2 Saturation VBG pH 7.11 L* VBG pCO2 30 L VBG HCO3 9 L* Sodium Chloride Carbon Dioxide BUN Creatinine Glucose POC Glucose (mg/dL) 297 H Plasma Lactic Acid Nakul Calcium Ionized Calcium Omid Magnesium AST ALT Alkaline Phosphatase Total Protein Albumin Stool Occult Blood Acetaminophen 11/18/19 11/18/19 11/18/19 14:13 15:11 15:20 WBC MCHC Plt Count Neutrophils # Lymphocytes # PT INR ABG pH ABG pCO2 ABG pO2 ABG HCO3 ABG Total CO2 ABG O2 Saturation VBG pH VBG pCO2 VBG HCO3 Sodium 134 L Chloride 97 L Carbon Dioxide 11 L BUN 21 H Creatinine 1.84 H Glucose POC Glucose (mg/dL) 172 H Plasma Lactic Acid Nakul Calcium 7.2 L Ionized Calcium Omid 4.0 L Magnesium AST 1214 H ALT 226 H Alkaline Phosphatase 140 H Total Protein 3.3 L Albumin 1.7 L Stool Occult Blood Acetaminophen 57.9 H* 11/18/19 11/18/19 17:41 17:41 WBC MCHC Plt Count Neutrophils # Lymphocytes # PT INR ABG pH 7.05 L* ABG pCO2 30 L ABG pO2 >400 H ABG HCO3 8 L* ABG Total CO2 9 L ABG O2 Saturation 98.7 H VBG pH VBG pCO2 VBG HCO3 Sodium Chloride Carbon Dioxide BUN Creatinine Glucose POC Glucose (mg/dL) 67 L Plasma Lactic Acid Nakul Calcium Ionized Calcium Omid Magnesium AST ALT Alkaline Phosphatase Total Protein Albumin Stool Occult Blood Acetaminophen - Diagnostic Findings Chest x-ray: image reviewed Assessment and Plan Plan: 1 acute pneumoperitoneum with fluid and air within the abdominal cavity. Consider gastric versus duodenal perforation. Note that NG tube was penetrating the gastric wall and was reaching the abdominal wall and as such I'm highly suspicious for an underlying gastric perforation. 2 severe lactic acidosis with a lactic acid level of 20 with severe anion gap metabolic acidosis 3 shock probably a combination of septic and hypovolemic. The patient is hemodynamically unstable. The patient's is pressor dependent. The patient is not producing any urine output at this point in time. 4 acute cardiac pulmonary arrest. The patient had a brief cardiac pulmonary arrest with PEA rhythm for a total of 4 minutes during which she was resuscitated and received CPR and received epinephrine. The total down time was estimated to be around 4 minutes. 5 acute respiratory failure, not hypoxic, post cardiac arrest and the patient was intubated and placed on a mechanical ventilator. 6 acute hepatotoxicity, could be related Tylenol toxicity versus shock/shock heber er, consider the possibility of an acute liver failure 7 acute acetaminophen toxicity, probably related to either Tylenol or no current taken on outpatient basis 8 acute coagulopathy secondary to above. 9 leukocytosis secondary to above 10 acute kidney injury in the creatinine is up to 1.8 and the patient is an aortic secondary to above 11 acute hypocalcemia 12 acute GI bleeding like to have an upper GI source. Patient had melanotic stools for a few days prior to presentation. The stool is positive for melena 13 history of breast cancer 14 history of hypertension 15 acute hypoglycemia secondary to above Plan Aggressive fluid resuscitation and the patient will need up to 5-6 L of IV fluids immediately and a triple lumen catheter was established Proceed with pressors and norepinephrine infusion will be titrated to maintain a mean artery pressure above 60 NG tube was ruled out slightly baseline above-mentioned findings Start the patient on IV Zosyn and Flagyl Vent management. Continue vent support. Dropped FiO2 down to 60% and increased otherwise to 550 keeping the respirator 30 and these changes were done based on the follow-up blood gases. immediate surgical consultation the patient may need to go to the operating room immediately. General surgeries aware Yonatan this patient with fresh frozen plasma Calcium gluconate was given 3 ampules of 50 mEq of sodium bicarbonate was also given We'll contact poison control , and initiated the patient on Mucomyst protocol monitor LFTs Monitor lactate level Triple lumen catheter was established Arterial line catheter was established Monitor the blood sugars and avoid any hypoglycemic events Patient carries a high mortality risk case will be performed. The patient will need to go to the operating room as soon as possible. We are the process of resuscitated patient for now in preparation for an expiratory laparotomy. We'll continue to follow. Case was discussed with emergency medicine. Case was discussed with general surgery. Time with Patient: Greater than 30
--- NOTE | 2019-11-18 18:03 | P.PCN ---
Date of Procedure: 11/18/19 Preoperative Diagnosis: Acute pneumoperitoneum under investigation Postoperative Diagnosis: Acute pneumoperitoneum under investigation Procedure(s) Performed: Insertion of an art line Anesthesia: local Surgeon: Aki Grant Estimated Blood Loss (ml): 0 Condition: critical Disposition: ICU Operative Findings: Indication: Hemodynamic monitoring. A time-out was completed verifying correct patient, procedure, site, positioning, and implant(s) or special equipment if applicable. Allens test was performed to ensure adequate perfusion. The patients right groin was prepped and draped in sterile fashion. 1% Lidocaine was used to anesthetize the area. An 18G Arrow arterial line was introduced into the right femoral artery. The catheter was threaded over the guide wire and the needle was removed with appropriate pulsatile blood return. Blood loss was minimal. The catheter was then sutured in place to the skin and a sterile dressing applied. Perfusion to the extremity distal to the point of catheter insertion was checked and found to be adequate. The patient tolerated the procedure well and there were no complications.
[2019-11-18] MEDS ORDERED: FLUCONAZOLE IN NACL,ISO-OSM 200 MG in SALINE 1 100ML.BAG IVPB STA (18:09)
[2019-11-18] MEDS ORDERED: DEXTROSE 5% IV ONE ×3 (18:15→23:00)
[2019-11-18] MEDS ORDERED: WATER IV ONE ×3 (18:15→23:00)
[2019-11-18] MEDS ORDERED: ACETYLCYSTEINE IV ONE ×3 (18:15→23:00)
[2019-11-18] MEDS ORDERED: ROCURONIUM BROMIDE 10 MG/ML 5 ML VIAL IV ONE (18:41)
[2019-11-18] MEDS ORDERED: PROPOFOL 10 MG/ML 20 ML VIAL IV ONE (18:41)
--- NOTE | 2019-11-18 18:51 | P.GSCN ---
History of Present Illness Consult date: 11/18/19 Reason for Consult: Acute abdomen, pneumoperitoneum History of present illness: Is a 63-year-old female with a two-week history of abdominal pain for the family. Apparently the patient has had some melanotic stool last couple days. Patient was then brought in by EMS. Patient was in septic shock. She was admitted in the emergency room. ICU consultation was achieved. Patient was fluid resuscitated in the restroom. The patient was intubated I'm unable to give any medical history. Past Medical History Past Medical History: Hypertension Additional Past Medical History / Comment(s): breast cancer History of Any Multi-Drug Resistant Organisms: None Reported Additional Past Surgical History / Comment(s): left mastectomy Past Psychological History: Depression Past Alcohol Use History: Rare Past Drug Use History: None Reported Medications and Allergies Home Medications Medication Instructions Recorded Confirmed Type Lisinopril-Hctz 20-12.5 mg 1 tab PO DAILY 03/07/14 11/18/19 History [Zestoretic 20-12.5] Albuterol Sulfate [Albuterol 2 puff PO RT-Q4H PRN 11/18/19 11/18/19 History Sulfate Hfa] Pantoprazole Sodium [Protonix] 40 mg PO DAILY 11/18/19 11/18/19 History Allergies Allergy/AdvReac Type Severity Reaction Status Date / Time No Known Allergies Allergy Verified 11/18/19 16:05 Surgical - Exam Vital Signs Temp Pulse Resp BP Pulse Ox 98.2 F 96 18 132/78 99 11/18/19 13:54 11/18/19 13:54 11/18/19 13:54 11/18/19 13:54 11/18/19 13:54 - General severe distress - Eyes PERRL - ENT normal pinna - Neck no masses - Respiratory On ventilator - Abdomen Abdomen is firm, abdomen is distended. The patient to mid I'm unable to elicit any peritoneal signs Results - Labs 11/18/19 14:04 11/18/19 15:20 Abnormal Lab Results - Last 24 Hours (Table) 11/18/19 11/18/19 11/18/19 Range/Units 13:57 13:59 14:04 WBC 18.4 H (3.8-10.6) k/uL MCHC 30.5 L (31.0-37.0) g/dL Plt Count 880 H (150-450) k/uL Neutrophils # 16.4 H (1.3-7.7) k/uL Lymphocytes # 0.9 L (1.0-4.8) k/uL PT (9.0-12.0) sec INR (<1.2) ABG pH (7.35-7.45) ABG pCO2 (35-45) mmHg ABG pO2 (83-108) mmHg ABG HCO3 (21-25) mmol/L ABG Total CO2 (19-24) mmol/L ABG O2 Saturation (94-97) % ABG Lactic Acid (0.5-1.6) mmol/L VBG pH (7.31-7.41) VBG pCO2 (37-51) mmHg VBG HCO3 (24-28) mmol/L Sodium (137-145) mmol/L Chloride (98-107) mmol/L Carbon Dioxide (22-30) mmol/L BUN (7-17) mg/dL Creatinine (0.52-1.04) mg/dL Glucose (74-99) mg/dL POC Glucose (mg/dL) 50 L 49 L (75-99) mg/dL Plasma Lactic Acid Nakul (0.7-2.0) mmol/L Calcium (8.4-10.2) mg/dL Ionized Calcium Omid (4.5-5.3) mg/dL Magnesium (1.6-2.3) mg/dL AST (14-36) U/L ALT (4-34) U/L Alkaline Phosphatase (38-126) U/L Total Protein (6.3-8.2) g/dL Albumin (3.5-5.0) g/dL Stool Occult Blood (Negative) Acetaminophen ug/mL Crossmatch 11/18/19 11/18/19 11/18/19 Range/Units 14:04 14:04 14:04 WBC (3.8-10.6) k/uL MCHC (31.0-37.0) g/dL Plt Count (150-450) k/uL Neutrophils # (1.3-7.7) k/uL Lymphocytes # (1.0-4.8) k/uL PT (9.0-12.0) sec INR (<1.2) ABG pH (7.35-7.45) ABG pCO2 (35-45) mmHg ABG pO2 (83-108) mmHg ABG HCO3 (21-25) mmol/L ABG Total CO2 (19-24) mmol/L ABG O2 Saturation (94-97) % ABG Lactic Acid (0.5-1.6) mmol/L VBG pH (7.31-7.41) VBG pCO2 (37-51) mmHg VBG HCO3 (24-28) mmol/L Sodium 132 L (137-145) mmol/L Chloride 90 L (98-107) mmol/L Carbon Dioxide 8 L* (22-30) mmol/L BUN 23 H (7-17) mg/dL Creatinine 1.89 H (0.52-1.04) mg/dL Glucose 40 L* (74-99) mg/dL POC Glucose (mg/dL) (75-99) mg/dL Plasma Lactic Acid Nakul 20.4 H* (0.7-2.0) mmol/L Calcium (8.4-10.2) mg/dL Ionized Calcium Omid (4.5-5.3) mg/dL Magnesium 2.9 H (1.6-2.3) mg/dL AST 881 H (14-36) U/L ALT 165 H (4-34) U/L Alkaline Phosphatase 199 H (38-126) U/L Total Protein 5.0 L (6.3-8.2) g/dL Albumin 2.7 L (3.5-5.0) g/dL Stool Occult Blood (Negative) Acetaminophen ug/mL Crossmatch See Detail 11/18/19 11/18/19 11/18/19 Range/Units 14:04 14:04 14:04 WBC (3.8-10.6) k/uL MCHC (31.0-37.0) g/dL Plt Count (150-450) k/uL Neutrophils # (1.3-7.7) k/uL Lymphocytes # (1.0-4.8) k/uL PT 20.3 H (9.0-12.0) sec INR 2.1 H (<1.2) ABG pH (7.35-7.45) ABG pCO2 (35-45) mmHg ABG pO2 (83-108) mmHg ABG HCO3 (21-25) mmol/L ABG Total CO2 (19-24) mmol/L ABG O2 Saturation (94-97) % ABG Lactic Acid (0.5-1.6) mmol/L VBG pH 7.11 L* (7.31-7.41) VBG pCO2 30 L (37-51) mmHg VBG HCO3 9 L* (24-28) mmol/L Sodium (137-145) mmol/L Chloride (98-107) mmol/L Carbon Dioxide (22-30) mmol/L BUN (7-17) mg/dL Creatinine (0.52-1.04) mg/dL Glucose (74-99) mg/dL POC Glucose (mg/dL) (75-99) mg/dL Plasma Lactic Acid Nakul (0.7-2.0) mmol/L Calcium (8.4-10.2) mg/dL Ionized Calcium Omid (4.5-5.3) mg/dL Magnesium (1.6-2.3) mg/dL AST (14-36) U/L ALT (4-34) U/L Alkaline Phosphatase (38-126) U/L Total Protein (6.3-8.2) g/dL Albumin (3.5-5.0) g/dL Stool Occult Blood Positive H (Negative) Acetaminophen ug/mL Crossmatch 11/18/19 11/18/19 11/18/19 Range/Units 14:12 14:13 15:11 WBC (3.8-10.6) k/uL MCHC (31.0-37.0) g/dL Plt Count (150-450) k/uL Neutrophils # (1.3-7.7) k/uL Lymphocytes # (1.0-4.8) k/uL PT (9.0-12.0) sec INR (<1.2) ABG pH (7.35-7.45) ABG pCO2 (35-45) mmHg ABG pO2 (83-108) mmHg ABG HCO3 (21-25) mmol/L ABG Total CO2 (19-24) mmol/L ABG O2 Saturation (94-97) % ABG Lactic Acid (0.5-1.6) mmol/L VBG pH (7.31-7.41) VBG pCO2 (37-51) mmHg VBG HCO3 (24-28) mmol/L Sodium (137-145) mmol/L Chloride (98-107) mmol/L Carbon Dioxide (22-30) mmol/L BUN (7-17) mg/dL Creatinine (0.52-1.04) mg/dL Glucose (74-99) mg/dL POC Glucose (mg/dL) 297 H 172 H (75-99) mg/dL Plasma Lactic Acid Nakul (0.7-2.0) mmol/L Calcium (8.4-10.2) mg/dL Ionized Calcium Omid 4.0 L (4.5-5.3) mg/dL Magnesium (1.6-2.3) mg/dL AST (14-36) U/L ALT (4-34) U/L Alkaline Phosphatase (38-126) U/L Total Protein (6.3-8.2) g/dL Albumin (3.5-5.0) g/dL Stool Occult Blood (Negative) Acetaminophen ug/mL Crossmatch 11/18/19 11/18/19 11/18/19 Range/Units 15:20 17:41 17:41 WBC (3.8-10.6) k/uL MCHC (31.0-37.0) g/dL Plt Count (150-450) k/uL Neutrophils # (1.3-7.7) k/uL Lymphocytes # (1.0-4.8) k/uL PT (9.0-12.0) sec INR (<1.2) ABG pH 7.05 L* (7.35-7.45) ABG pCO2 30 L (35-45) mmHg ABG pO2 >400 H (83-108) mmHg ABG HCO3 8 L* (21-25) mmol/L ABG Total CO2 9 L (19-24) mmol/L ABG O2 Saturation 98.7 H (94-97) % ABG Lactic Acid (0.5-1.6) mmol/L VBG pH (7.31-7.41) VBG pCO2 (37-51) mmHg VBG HCO3 (24-28) mmol/L Sodium 134 L (137-145) mmol/L Chloride 97 L (98-107) mmol/L Carbon Dioxide 11 L (22-30) mmol/L BUN 21 H (7-17) mg/dL Creatinine 1.84 H (0.52-1.04) mg/dL Glucose (74-99) mg/dL POC Glucose (mg/dL) 67 L (75-99) mg/dL Plasma Lactic Acid Nakul (0.7-2.0) mmol/L Calcium 7.2 L (8.4-10.2) mg/dL Ionized Calcium Omid (4.5-5.3) mg/dL Magnesium (1.6-2.3) mg/dL AST 1214 H (14-36) U/L ALT 226 H (4-34) U/L Alkaline Phosphatase 140 H (38-126) U/L Total Protein 3.3 L (6.3-8.2) g/dL Albumin 1.7 L (3.5-5.0) g/dL Stool Occult Blood (Negative) Acetaminophen 57.9 H* ug/mL Crossmatch 11/18/19 Range/Units 17:46 WBC (3.8-10.6) k/uL MCHC (31.0-37.0) g/dL Plt Count (150-450) k/uL Neutrophils # (1.3-7.7) k/uL Lymphocytes # (1.0-4.8) k/uL PT (9.0-12.0) sec INR (<1.2) ABG pH (7.35-7.45) ABG pCO2 (35-45) mmHg ABG pO2 (83-108) mmHg ABG HCO3 (21-25) mmol/L ABG Total CO2 (19-24) mmol/L ABG O2 Saturation (94-97) % ABG Lactic Acid 18.0 H* (0.5-1.6) mmol/L VBG pH (7.31-7.41) VBG pCO2 (37-51) mmHg VBG HCO3 (24-28) mmol/L Sodium (137-145) mmol/L Chloride (98-107) mmol/L Carbon Dioxide (22-30) mmol/L BUN (7-17) mg/dL Creatinine (0.52-1.04) mg/dL Glucose (74-99) mg/dL POC Glucose (mg/dL) (75-99) mg/dL Plasma Lactic Acid Nakul (0.7-2.0) mmol/L Calcium (8.4-10.2) mg/dL Ionized Calcium Omid (4.5-5.3) mg/dL Magnesium (1.6-2.3) mg/dL AST (14-36) U/L ALT (4-34) U/L Alkaline Phosphatase (38-126) U/L Total Protein (6.3-8.2) g/dL Albumin (3.5-5.0) g/dL Stool Occult Blood (Negative) Acetaminophen ug/mL Crossmatch Diabetes panel 11/18/19 11/18/19 Range/Units 14: 15:20 Sodium 132 L 134 L (137-145) mmol/L Potassium 4.5 3.8 (3.5-5.1) mmol/L Chloride 90 L 97 L (98-107) mmol/L Carbon Dioxide 8 L* 11 L (22-30) mmol/L BUN 23 H 21 H (7-17) mg/dL Creatinine 1.89 H 1.84 H (0.52-1.04) mg/dL Glucose 40 L* 74 (74-99) mg/dL Calcium 8.8 7.2 L (8.4-10.2) mg/dL AST 881 H 1214 H (14-36) U/L ALT 165 H 226 H (4-34) U/L Alkaline Phosphatase 199 H 140 H (38-126) U/L Total Protein 5.0 L 3.3 L (6.3-8.2) g/dL Albumin 2.7 L 1.7 L (3.5-5.0) g/dL Calcium panel 11/18/19 11/18/19 11/18/19 Range/Units 14: 14: 15: Calcium 8.8 7.2 L (8.4-10.2) mg/dL Ionized Calcium Omid 4.0 L (4.5-5.3) mg/dL Albumin 2.7 L 1.7 L (3.5-5.0) g/dL Pituitary panel 11/18/19 11/18/19 Range/Units 14:04 15:20 Sodium 132 L 134 L (137-145) mmol/L Potassium 4.5 3.8 (3.5-5.1) mmol/L Chloride 90 L 97 L (98-107) mmol/L Carbon Dioxide 8 L* 11 L (22-30) mmol/L BUN 23 H 21 H (7-17) mg/dL Creatinine 1.89 H 1.84 H (0.52-1.04) mg/dL Glucose 40 L* 74 (74-99) mg/dL Calcium 8.8 7.2 L (8.4-10.2) mg/dL Adrenal panel 11/18/19 11/18/19 Range/Units 14:04 15:20 Sodium 132 L 134 L (137-145) mmol/L Potassium 4.5 3.8 (3.5-5.1) mmol/L Chloride 90 L 97 L (98-107) mmol/L Carbon Dioxide 8 L* 11 L (22-30) mmol/L BUN 23 H 21 H (7-17) mg/dL Creatinine 1.89 H 1.84 H (0.52-1.04) mg/dL Glucose 40 L* 74 (74-99) mg/dL Calcium 8.8 7.2 L (8.4-10.2) mg/dL Total Bilirubin 1.3 0.7 (0.2-1.3) mg/dL AST 881 H 1214 H (14-36) U/L ALT 165 H 226 H (4-34) U/L Alkaline Phosphatase 199 H 140 H (38-126) U/L Total Protein 5.0 L 3.3 L (6.3-8.2) g/dL Albumin 2.7 L 1.7 L (3.5-5.0) g/dL - Imaging CT scan - abdomen: report reviewed (Computed tomography scan the abdomen shows evidence of pneumoperitoneum and ascites. It appears that the NG tube is outside of the stomach.) Assessment and Plan Assessment: Pneumoperitoneum Ascites Possible gastric perforation. Patient will be taken for emergent exploratory laparotomy.
[2019-11-18] MEDS ORDERED: METOCLOPRAMIDE 5 MG/ML 2 ML VIAL IVP PRN (19:54)
[2019-11-18] MEDS ORDERED: ONDANSETRON 4 MG/2 ML VIAL IVP PRN (19:54)
[2019-11-18] MEDS ORDERED: metroNIDAZOLE-NS PMX 500 MG in SALINE 1 100ML.BAG IVPB SCH (20:00)
--- NOTE | 2019-11-18 20:07 | P.OP ---
Date of Procedure: 11/18/19 Preoperative Diagnosis: Perforated viscus Postoperative Diagnosis: Carcinomatosis Perforated small bowel Procedure(s) Performed: Exploratory laparotomy Small bowel resection Ileostomy Anesthesia: ADONAY Surgeon: Doe Calhoun Estimated Blood Loss (ml): 100 Pathology: other (ileum) Condition: stable Disposition: ICU Description of Procedure: The patient's placed on the operative table in supine position. She received generously. Her abdomen was prepped and draped usual sterile fashion. The abdomen was entered through a midline incision. The Bookwalter this wound. There is approximately 2 L of ascites that was aspirated from the pleural cavity. There appeared to be evidence of peritoneal studding on the peritoneum and small bowel. The mesentery the small bowel was contracted. There is evidence of carcinomatosis across the area of the duodenum transverse colon and small bowel. There appeared to be evidence of a perforation of the small bowel in the ileum. The bowel was appeared to be necrotic as well. This point the ischemic bowel was transected proximally and distally using the COLLIN stapler. The mesentery the bowel was then divided with the Enseal device. The specimens of pathology. The abdomen then irrigated with 4 L normal saline. The suitable spot for the ileostomy was chosen in the left upper quadrant. The skin was incised with a scalpel and then the fascia was divided with electrocautery and then the ileum was brought up through the ileostomy opening. The fascia was then closed with looped #1 PDS suture. Skin was closed with daquan. The ileostomy was matured with 3-0 Vicryl. Patient sent to the ICU in guarded condition
[2019-11-18 20:16] LABS: Glucose,Whole Blood 266 mg/dL (75-99)
[2019-11-18] MEDS ORDERED: CHLORHEXIDINE GLUCONATE 15 ML CUP MUCOUS MEM SCH (21:00)
[2019-11-18 21:07] LABS: Calcium 6.7 mg/dL (8.4-10.2); Potassium 3.9 mmol/L (3.5-5.1)
[2019-11-18 21:14] LABS: Basophils % (A) 2 %; Eosinophils % (A) 1 %; HCT 36.5 % (34.0-46.0); Hypochromasia Marked; Lymphocytes # (A) 0.6 k/uL (1.0-4.8); Lymphocytes % (A) 36 %; MCH 30.1 pg (25.0-35.0); MCHC 30.2 g/dL (31.0-37.0); MCV 99.5 fL (80.0-100.0); Monocytes # (A) 0.1 k/uL (0-1.0); Monocytes % (A) 5 %; Neutrophils # (A) 0.9 k/uL (1.3-7.7); Neutrophils % (A) 54 %; Platelet Count 496 k/uL (150-450); RBC 3.67 m/uL (3.80-5.40); RDW 13.1 % (11.5-15.5); WBC 1.7 k/uL (3.8-10.6)
[2019-11-18 21:25] LABS: Crenated RBC Present; Poikilocytosis (M) Present
[2019-11-18 21:41] LABS: ABG Base Excess -24.5 mmol/L; ABG Oxygen Saturation 91.2 % (94-97); ABG PCO2 27 mmHg (35-45); ABG PO2 86 mmHg (83-108); ABG TCO2 8 mmol/L (19-24); Allen Test Performed? Yes
[2019-11-18 21:43] LABS: ABG PH 7.01 (7.35-7.45)
[2019-11-18 21:44] LABS: ABG HCO3 7 mmol/L (21-25)
[2019-11-18] MEDS ORDERED: FLUCONAZOLE IN NACL,ISO-OSM 200 MG in SALINE 1 100ML.BAG IVPB ONE (22:00)
[2019-11-18] MEDS ORDERED: SODIUM CHLORIDE 0.9% 1,000 ML IV ONE (22:01)
[2019-11-18 22:09] VITALS: RESP 30
--- NOTE | 2019-11-18 22:13 | P.HPIM ---
History of Present Illness H&P Date: 11/18/19 Chief Complaint: Decreased responsiveness History of presenting complaint: This is a 63-year-old patient of Dr. Kary Eller. History is updated the ER physician and the. ER notes. Patient at home had been progressively getting weak. Several days. She also apparently had a GI bleed that was managed outpatient last couple weeks. Had been described as very weak in the ER. history of cirrhosis. There were no focal neurological deficits. Glucose in the ER was 50 and she was given some dextrose. Rectal exam the ER showed melanotic stools. Patient went into PEA. Had CPR for 4-6 minutes. 1 dose of Ambien sodium bicarbonate. Successful return of spontaneous circulation. Subsequently intubated. She was following did some basic commands. Director Shopper Marketing was contacted. 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 Computed tomography scan of the abdomen showed pneumoperitoneum moderate ascites small bowel ileus. Tylenol came back to be 57.9. 1 dose of Mucomyst was given after contacting the poison control. No suggestion of acute overdose felt to be chronic Tylenol ingestion. Patient was taken to the operating room by Dr. Calhoun. Partial small bowel resection was carried out and there was a perforation. There was evidence of carcinomatosis. Abdominal cavity was washed out. Patient has a resulting left-sided ileostomy. Patient is on the ventilator with FiO2 60 the people 5. Drips include epinep hrine and propofol. Patient also hypothermic with a warming blanket. Review of systems cannot be done patient is intubated Past medical history to include: Cirrhosis, hypertension Social history: Alcohol rarely. No smoking. . Physical examination: VITAL SIGNS: 98.2, 106, 29, 76 x 59, 96% on the ventilator GENERAL: BMI 23.7, laying in bed, intubated. EYES: Pupils equal. Conjunctiva normal. HEENT: External appearance of nose and ears normal, oral cavity endotracheal tube. NECK: JVD unable to assess; masses not palpable. HEART: First and second heart sounds are normal; no edema. LUNGS:[ Respiratory rate increased, decreased breath sounds. ABDOMEN: Soft, nontender, left-sided ileostomy bag, dressing over the incision site liver spleen not palpable, no masses palpable. PSYCH: Sedatedl. NEUROLOGICAL: Cranial nerves grossly intact; no facial asymmetry, power and sensation-unable to assess. LYMPHATICS: No lymph nodes palpable in the axilla and neck INVESTIGATIONS, reviewed in the clinical context: White count 18.4 hemoglobin 12.2 platelets 80 8D sodium 132 bicarbonate bun 23 creatinine 1.89 blood glucose 40 lactic acid 20.4 on a scheduled 4 AST 881 PLT 165 acetaminophen 57.9 alcohol less than 10 EKG tracing personally reviewed by me-normal sinus rhythm with unclear baseline nonspecific changes ST segment Chest x-ray film personally reviewed by me-portable, lung zuniga clear Computed tomography scan of the abdomen pelvis-moderate abdominal ascites, moderate pneumoperitoneum, free air, Assessment: -Small bowel perforation likely secondary to carcinomatosis, leading to partial small bowel resection followed by ileostomy -Septic and hypotensive shock, on levo fed -Pulseless electrical activity treated with epinephrine -Acute hypoxic respiratory failure, on ventilator support -Chronic acetaminophen toxicity in a patient with known cirrhosis -Cirrhosis, chronic cause unknown -Severe metabolic acidosis -Severe hypocalcemia -Severe hypoglycemia likely from decreased oral intake -Lactic acidosis combination of type I-type II -Acute hepatic failure secondary to Tylenol toxicity -Acute kidney injury likely ATN from hypotension -Severe hypothermia, and warming blanket Plan: Patient's currently admitted to the ICU. On the ventilator. Drips include levo fed and propofol. Also bicarbonate drip. Also getting IV Diflucan, Flagyl and IV Zosyn. Patient be followed by logger and Dr. Calhoun from general surgery. Given extensive carcinomatosis intra-abdominal and cirrhosis prognosis is very guarded. Patient has a Roosevelt hugger. IV fluids. Patient to get IV Mucomyst per protocol. Discussed with the nurse at the bedside. Spoke to the pharmacist. Past Medical History Past Medical History: Hypertension Additional Past Medical History / Comment(s): breast cancer History of Any Multi-Drug Resistant Organisms: None Reported Additional Past Surgical History / Comment(s): left mastectomy Past Psychological History: Depression Past Alcohol Use History: Rare Past Drug Use History: None Reported Medications and Allergies Home Medications Medication Instructions Recorded Confirmed Type Lisinopril-Hctz 20-12.5 mg 1 tab PO DAILY 03/07/14 11/18/19 History [Zestoretic 20-12.5] Albuterol Sulfate [Albuterol 2 puff PO RT-Q4H PRN 11/18/19 11/18/19 History Sulfate Hfa] Pantoprazole Sodium [Protonix] 40 mg PO DAILY 11/18/19 11/18/19 History Allergies Allergy/AdvReac Type Severity Reaction Status Date / Time No Known Allergies Allergy Verified 11/18/19 16:05 Physical Exam Vitals: Vital Signs Temp Pulse Resp BP Pulse Ox 11/18/19 21:15 106 H 29 H 76/59 95 11/18/19 21:00 105 H 31 H 96 11/18/19 20:45 104 H 30 H 97 11/18/19 20:30 103 H 30 H 100/66 98 11/18/19 18:05 105 H 30 H 119/69 99 11/18/19 17:58 106 H 30 H 130/62 99 11/18/19 16:41 73/47 11/18/19 16:18 84/55 11/18/19 16:13 107 H 28 H 68/45 98 11/18/19 16:00 30 H 70/67 99 11/18/19 15:45 132 H 30 H 144/82 98 11/18/19 13:59 16 11/18/19 13:54 98.2 F 96 18 132/78 99 Intake and Output 11/18/19 11/18/19 11/18/19 06:59 14:59 22:59 Intake Total 1041.121 Output Total 380 Balance 661.121 Intake: IV 400 0.9 NS 200 Dextrose 5% in Water 1, 200 000 ml @ 100 mls/hr IV . [id number] HANNAH with Sodium Bicarb (1 Meq/ml) 150 ml Rx#:[id number] Intake, IV Titration 2.121 Amount Norepinephrine 32 mg In 0.784 Sodium Chloride 0.9% 218 ml @ 0.05 MCG/KG/MIN 1. 425 mls/hr IV .Q24H HANNAH Rx#:[id number] propofoL 1,000 mg In 1.337 Empty Bag 1 bag @ Titrate IV .Q0M ONE Rx#: [id number] propofoL 1,000 mg In 0 Empty Bag 1 bag @ Titrate IV .Q0M HANNAH Rx#: [id number] Blood Product 639 Ffp 24 Cpd Unit 329 [id number] Rc As-1 Unit 310 [id number] Output: Urine 280 Uretheral (Farah) 10 Estimated Blood Loss 100 Other: Weight 60.781 kg ABP, PAP, CO, CI - Last 8 Hours Arterial Blood Pressure 87/57 Arterial Blood Pressure 90/58 Arterial Blood Pressure 115/57 Arterial Blood Pressure 116/55 Results CBC & Chem 7: 11/18/19 20:30 11/18/19 19:58 Labs: Abnormal Lab Results - Last 24 Hours (Table) 11/18/19 11/18/19 11/18/19 Range/Units 13:57 13:59 14:04 WBC 18.4 H (3.8-10.6) k/uL RBC (3.80-5.40) m/uL Hgb (11.4-16.0) gm/dL MCHC 30.5 L (31.0-37.0) g/dL Plt Count 880 H (150-450) k/uL Neutrophils # 16.4 H (1.3-7.7) k/uL Lymphocytes # 0.9 L (1.0-4.8) k/uL PT (9.0-12.0) sec INR (<1.2) ABG pH (7.35-7.45) ABG pCO2 (35-45) mmHg ABG pO2 (83-108) mmHg ABG HCO3 (21-25) mmol/L ABG Total CO2 (19-24) mmol/L ABG O2 Saturation (94-97) % ABG Lactic Acid (0.5-1.6) mmol/L VBG pH (7.31-7.41) VBG pCO2 (37-51) mmHg VBG HCO3 (24-28) mmol/L Sodium (137-145) mmol/L Chloride (98-107) mmol/L Carbon Dioxide (22-30) mmol/L BUN (7-17) mg/dL Creatinine (0.52-1.04) mg/dL Glucose (74-99) mg/dL POC Glucose (mg/dL) 50 L 49 L (75-99) mg/dL Plasma Lactic Acid Nakul (0.7-2.0) mmol/L Calcium (8.4-10.2) mg/dL Ionized Calcium Omid (4.5-5.3) mg/dL Magnesium (1.6-2.3) mg/dL AST (14-36) U/L ALT (4-34) U/L Alkaline Phosphatase (38-126) U/L Total Protein (6.3-8.2) g/dL Albumin (3.5-5.0) g/dL Stool Occult Blood (Negative) Acetaminophen ug/mL Crossmatch 11/18/19 11/18/19 11/18/19 Range/Units 14:04 14:04 14:04 WBC (3.8-10.6) k/uL RBC (3.80-5.40) m/uL Hgb (11.4-16.0) gm/dL MCHC (31.0-37.0) g/dL Plt Count (150-450) k/uL Neutrophils # (1.3-7.7) k/uL Lymphocytes # (1.0-4.8) k/uL PT (9.0-12.0) sec INR (<1.2) ABG pH (7.35-7.45) ABG pCO2 (35-45) mmHg ABG pO2 (83-108) mmHg ABG HCO3 (21-25) mmol/L ABG Total CO2 (19-24) mmol/L ABG O2 Saturation (94-97) % ABG Lactic Acid (0.5-1.6) mmol/L VBG pH (7.31-7.41) VBG pCO2 (37-51) mmHg VBG HCO3 (24-28) mmol/L Sodium 132 L (137-145) mmol/L Chloride 90 L (98-107) mmol/L Carbon Dioxide 8 L* (22-30) mmol/L BUN 23 H (7-17) mg/dL Creatinine 1.89 H (0.52-1.04) mg/dL Glucose 40 L* (74-99) mg/dL POC Glucose (mg/dL) (75-99) mg/dL Plasma Lactic Acid Nakul 20.4 H* (0.7-2.0) mmol/L Calcium (8.4-10.2) mg/dL Ionized Calcium Omid (4.5-5.3) mg/dL Magnesium 2.9 H (1.6-2.3) mg/dL AST 881 H (14-36) U/L ALT 165 H (4-34) U/L Alkaline Phosphatase 199 H (38-126) U/L Total Protein 5.0 L (6.3-8.2) g/dL Albumin 2.7 L (3.5-5.0) g/dL Stool Occult Blood (Negative) Acetaminophen ug/mL Crossmatch See Detail 11/18/19 11/18/19 11/18/19 Range/Units 14:04 14:04 14:04 WBC (3.8-10.6) k/uL RBC (3.80-5.40) m/uL Hgb (11.4-16.0) gm/dL MCHC (31.0-37.0) g/dL Plt Count (150-450) k/uL Neutrophils # (1.3-7.7) k/uL Lymphocytes # (1.0-4.8) k/uL PT 20.3 H (9.0-12.0) sec INR 2.1 H (<1.2) ABG pH (7.35-7.45) ABG pCO2 (35-45) mmHg ABG pO2 (83-108) mmHg ABG HCO3 (21-25) mmol/L ABG Total CO2 (19-24) mmol/L ABG O2 Saturation (94-97) % ABG Lactic Acid (0.5-1.6) mmol/L VBG pH 7.11 L* (7.31-7.41) VBG pCO2 30 L (37-51) mmHg VBG HCO3 9 L* (24-28) mmol/L Sodium (137-145) mmol/L Chloride (98-107) mmol/L Carbon Dioxide (22-30) mmol/L BUN (7-17) mg/dL Creatinine (0.52-1.04) mg/dL Glucose (74-99) mg/dL POC Glucose (mg/dL) (75-99) mg/dL Plasma Lactic Acid Nakul (0.7-2.0) mmol/L Calcium (8.4-10.2) mg/dL Ionized Calcium Omid (4.5-5.3) mg/dL Magnesium (1.6-2.3) mg/dL AST (14-36) U/L ALT (4-34) U/L Alkaline Phosphatase (38-126) U/L Total Protein (6.3-8.2) g/dL Albumin (3.5-5.0) g/dL Stool Occult Blood Positive H (Negative) Acetaminophen ug/mL Crossmatch 11/18/19 11/18/1911/17/20 Range/Units 14:12 14:13 15:11 WBC (3.8-10.6) k/uL RBC (3.80-5.40) m/uL Hgb (11.4-16.0) gm/dL MCHC (31.0-37.0) g/dL Plt Count (150-450) k/uL Neutrophils # (1.3-7.7) k/uL Lymphocytes # (1.0-4.8) k/uL PT (9.0-12.0) sec INR (<1.2) ABG pH (7.35-7.45) ABG pCO2 (35-45) mmHg ABG pO2 (83-108) mmHg ABG HCO3 (21-25) mmol/L ABG Total CO2 (19-24) mmol/L ABG O2 Saturation (94-97) % ABG Lactic Acid (0.5-1.6) mmol/L VBG pH (7.31-7.41) VBG pCO2 (37-51) mmHg VBG HCO3 (24-28) mmol/L Sodium (137-145) mmol/L Chloride (98-107) mmol/L Carbon Dioxide (22-30) mmol/L BUN (7-17) mg/dL Creatinine (0.52-1.04) mg/dL Glucose (74-99) mg/dL POC Glucose (mg/dL) 297 H 172 H (75-99) mg/dL Plasma Lactic Acid Nakul (0.7-2.0) mmol/L Calcium (8.4-10.2) mg/dL Ionized Calcium Omid 4.0 L (4.5-5.3) mg/dL Magnesium (1.6-2.3) mg/dL AST (14-36) U/L ALT (4-34) U/L Alkaline Phosphatase (38-126) U/L Total Protein (6.3-8.2) g/dL Albumin (3.5-5.0) g/dL Stool Occult Blood (Negative) Acetaminophen ug/mL Crossmatch 11/18/19 11/18/19 11/18/19 Range/Units 15:20 17:41 17:41 WBC (3.8-10.6) k/uL RBC (3.80-5.40) m/uL Hgb (11.4-16.0) gm/dL MCHC (31.0-37.0) g/dL Plt Count (150-450) k/uL Neutrophils # (1.3-7.7) k/uL Lymphocytes # (1.0-4.8) k/uL PT (9.0-12.0) sec INR (<1.2) ABG pH 7.05 L* (7.35-7.45) ABG pCO2 30 L (35-45) mmHg ABG pO2 >400 H (83-108) mmHg ABG HCO3 8 L* (21-25) mmol/L ABG Total CO2 9 L (19-24) mmol/L ABG O2 Saturation 98.7 H (94-97) % ABG Lactic Acid (0.5-1.6) mmol/L VBG pH (7.31-7.41) VBG pCO2 (37-51) mmHg VBG HCO3 (24-28) mmol/L Sodium 134 L (137-145) mmol/L Chloride 97 L (98-107) mmol/L Carbon Dioxide 11 L (22-30) mmol/L BUN 21 H (7-17) mg/dL Creatinine 1.84 H (0.52-1.04) mg/dL Glucose (74-99) mg/dL POC Glucose (mg/dL) 67 L (75-99) mg/dL Plasma Lactic Acid Nakul (0.7-2.0) mmol/L Calcium 7.2 L (8.4-10.2) mg/dL Ionized Calcium Omid (4.5-5.3) mg/dL Magnesium (1.6-2.3) mg/dL AST 1214 H (14-36) U/L ALT 226 H (4-34) U/L Alkaline Phosphatase 140 H (38-126) U/L Total Protein 3.3 L (6.3-8.2) g/dL Albumin 1.7 L (3.5-5.0) g/dL Stool Occult Blood (Negative) Acetaminophen 57.9 H* ug/mL Crossmatch 11/18/19 11/18/19 11/18/19 Range/Units 17:46 19:58 20:15 WBC (3.8-10.6) k/uL RBC (3.80-5.40) m/uL Hgb (11.4-16.0) gm/dL MCHC (31.0-37.0) g/dL Plt Count (150-450) k/uL Neutrophils # (1.3-7.7) k/uL Lymphocytes # (1.0-4.8) k/uL PT (9.0-12.0) sec INR (<1.2) ABG pH (7.35-7.45) ABG pCO2 (35-45) mmHg ABG pO2 (83-108) mmHg ABG HCO3 (21-25) mmol/L ABG Total CO2 (19-24) mmol/L ABG O2 Saturation (94-97) % ABG Lactic Acid 18.0 H* (0.5-1.6) mmol/L VBG pH (7.31-7.41) VBG pCO2 (37-51) mmHg VBG HCO3 (24-28) mmol/L Sodium 134 L (137-145) mmol/L Chloride (98-107) mmol/L Carbon Dioxide 8 L* (22-30) mmol/L BUN 20 H (7-17) mg/dL Creatinine 1.41 H (0.52-1.04) mg/dL Glucose 169 H (74-99) mg/dL POC Glucose (mg/dL) 266 H (75-99) mg/dL Plasma Lactic Acid Nakul (0.7-2.0) mmol/L Calcium 6.7 L (8.4-10.2) mg/dL Ionized Calcium Omid (4.5-5.3) mg/dL Magnesium (1.6-2.3) mg/dL AST (14-36) U/L ALT (4-34) U/L Alkaline Phosphatase (38-126) U/L Total Protein (6.3-8.2) g/dL Albumin (3.5-5.0) g/dL Stool Occult Blood (Negative) Acetaminophen ug/mL Crossmatch 11/18/19 11/18/19 11/18/19 Range/Units 20:30 20:30 21:38 WBC 1.7 L (3.8-10.6) k/uL RBC 3.67 L (3.80-5.40) m/uL Hgb 11.0 L (11.4-16.0) gm/dL MCHC 30.2 L (31.0-37.0) g/dL Plt Count 496 H (150-450) k/uL Neutrophils # 0.9 L (1.3-7.7) k/uL Lymphocytes # 0.6 L (1.0-4.8) k/uL PT (9.0-12.0) sec INR (<1.2) ABG pH 7.01 L* (7.35-7.45) ABG pCO2 27 L (35-45) mmHg ABG pO2 (83-108) mmHg ABG HCO3 7 L* (21-25) mmol/L ABG Total CO2 8 L (19-24) mmol/L ABG O2 Saturation 91.2 L (94-97) % ABG Lactic Acid (0.5-1.6) mmol/L VBG pH (7.31-7.41) VBG pCO2 (37-51) mmHg VBG HCO3 (24-28) mmol/L Sodium (137-145) mmol/L Chloride (98-107) mmol/L Carbon Dioxide (22-30) mmol/L BUN (7-17) mg/dL Creatinine (0.52-1.04) mg/dL Glucose (74-99) mg/dL POC Glucose (mg/dL) (75-99) mg/dL Plasma Lactic Acid Nakul 15.9 H* (0.7-2.0) mmol/L Calcium (8.4-10.2) mg/dL Ionized Calcium Omid (4.5-5.3) mg/dL Magnesium (1.6-2.3) mg/dL AST (14-36) U/L ALT (4-34) U/L Alkaline Phosphatase (38-126) U/L Total Protein (6.3-8.2) g/dL Albumin (3.5-5.0) g/dL Stool Occult Blood (Negative) Acetaminophen ug/mL Crossmatch
[2019-11-18] MEDS ORDERED: SODIUM CHLORIDE 0.9% 1,000 ML IV SCH (22:15)
[2019-11-18] MEDS ORDERED: SODIUM CHLORIDE 0.9% 50 ML with VASOPRESSIN 20 UNIT IVPB SCH ×2 (22:30)
[2019-11-19] MEDS ORDERED: INSULIN ASPART (NovoLOG) 100 UNIT/ML VIAL SQ SCH
[2019-11-19 00:10] VITALS: BP 86/69
[2019-11-19 00:15] LABS: Glucose,Whole Blood 233 mg/dL (75-99)
[2019-11-19] MEDS ORDERED: WATER IV ONE (03:00)
[2019-11-19] MEDS ORDERED: DEXTROSE 5% IV ONE (03:00)
[2019-11-19] MEDS ORDERED: ACETYLCYSTEINE IV ONE (03:00)
[2019-11-19 03:01] VITALS: PULSE 85
[2019-11-19] MEDS ORDERED: VANCOMYCIN 1,250 MG in SODIUM CHLORIDE 0.9% 250 ML IVPB ONE (06:00)
[2019-11-19] MEDS ORDERED: PIPERACILLIN-TAZOBACTAM 3.375 GM in SODIUM CHLORIDE 0.9% 100 ML IVPB SCH (06:00)
[2019-11-19] MEDS ORDERED: FLUCONAZOLE IN NACL,ISO-OSM 100 MG in SALINE 1 50ML.BAG IVPB SCH (12:00)
--- NOTE | 2019-11-19 15:10 | P.DS ---
Providers Date of admission: 11/18/19 16:02 Expected date of discharge: 11/19/19 Attending physician: Ramsey Ocasio Consults: 11/18/19 13:59 Consult Physician Urgent Consulting Provider: Julius Sherman Consult Reason/Comments: gi bleed Do you want consulting provider notified?: Yes 11/18/19 16:01 Consult Physician Routine Consulting Provider: Aki Grant Consult Reason/Comments: icu patient Do you want consulting provider notified?: Already Contacted 11/18/19 17:24 Consult Physician Urgent Consulting Provider: Doe Calhoun Consult Reason/Comments: peritoneal air Do you want consulting provider notified?: Already Contacted Primary care physician: Rcio Eller [facility] Course: Chief Complaint: Decreased responsiveness History of presenting complaint: This is a 63-year-old patient of Dr. Kary Eller. History is updated the ER physician and the. ER notes. Patient at home had been progressively getting weak. Several days. She also apparently had a GI bleed that was managed outpatient last couple weeks. Had been described as very weak in the ER. history of cirrhosis. There were no focal neurological deficits. Glucose in the ER was 50 and she was given some dextrose. Rectal exam the ER showed melanotic stools. Patient went into PEA. Had CPR for 4-6 minutes. 1 dose of Ambien sodium bicarbonate. Successful return of spontaneous circulation. Subsequently intubated. She was following did some basic commands. Unindentured Apprentice was contacted. Computed tomography scan of the brain showed old bilateral pa rietal cortical infarct. Computed tomography scan of the abdomen showed pneumoperitoneum moderate ascites small bowel ileus. Tylenol came back to be 57.9. 1 dose of Mucomyst was given after contacting the poison control. No suggestion of acute overdose felt to be chronic Tylenol ingestion. Patient was taken to the operating room by Dr. Calhoun. Partial small bowel resection was carried out and there was a perforation. There was evidence of carcinomatosis. Abdominal cavity was washed out. Patient has a resulting left-sided ileostomy. Patient is on the ventilator with FiO2 60 the people 5. Drips include epinephrine and propofol. Patient also hypothermic with a warming blanket. Today-patient early also today deteriorated and subsequently succumbed underlying conditions. Consultation: Dr. Calhoun from general surgery Dr. Grant- spray technician INVESTIGATIONS, reviewed in the clinical context: White count 18.4 hemoglobin 12.2 platelets 80 8D sodium 132 bicarbonate bun 23 creatinine 1.89 blood glucose 40 lactic acid 20.4 on a scheduled 4 AST 881 PLT 165 acetaminophen 57.9 alcohol less than 10 EKG tracing personally reviewed by me-normal sinus rhythm with unclear baseline nonspecific changes ST segment Chest x-ray film personally reviewed by me-portable, lung zuniga clear Computed tomography scan of the abdomen pelvis-moderate abdominal ascites, moderate pneumoperitoneum, free air, Cause of : Cirrhosis Assessment: -Small bowel perforation likely secondary to carcinomatosis, leading to partial small bowel resection followed by ileostomy -Septic and hypotensive shock, on levo fed -Pulseless electrical activity treated with epinephrine -Acute hypoxic respiratory failure, on ventilator support -Chronic acetaminophen toxicity in a patient with known cirrhosis -Cirrhosis, chronic cause unknown -Severe metabolic acidosis -Severe hypocalcemia -Severe hypoglycemia likely from decreased oral intake -Lactic acidosis combination of type I-type II -Acute hepatic failure secondary to Tylenol toxicity -Acute kidney injury likely ATN from hypotension -Severe hypothermia, and warming blanket Disposition: Patient Patient Condition at Discharge: Critical Plan - Discharge Summary New Discharge Prescriptions: No Action Lisinopril-Hctz 20-12.5 mg [Zestoretic 20-12.5] 1 tab PO DAILY Albuterol Sulfate [Albuterol Sulfate Hfa] 2 puff PO RT-Q4H PRN PRN Reason: Shortness Of Breath Pantoprazole Sodium [Protonix] 40 mg PO DAILY Discharge Medication List Lisinopril-Hctz 20-12.5 mg [Zestoretic 20-12.5] 1 tab PO DAILY 03/07/14 [History] Albuterol Sulfate [Albuterol Sulfate Hfa] 2 puff PO RT-Q4H PRN 11/18/19 [History] Pantoprazole Sodium [Protonix] 40 mg PO DAILY 11/18/19 [History] Follow up Appointment(s)/Referral(s): Rico Eller DO [Primary Care Provider] - 1-2 days Discharge Disposition: - Preliminary Cause of Preliminary Cause of : Cirrhosis
--- NOTE | 2019-11-21 10:36 | CDI ---
Documentation Clarification Form Date: 11/21/2019 09:13:00 AM From: Lexii Soto Phone: If you have a question about this query, please contact Allie [employer] Sales Engineer at [phone] between 8am and 5pm. Admit Date: 11/18/2019 04:02:00 PM Patient Name: Princess Borja Visit Number: [id number] Discharge Date: 11/19/2019 07:10:00 AM ATTENTION: The Clinical Documentation Specialists (CDI) and [facility] Coding Staff appreciate your assistance in clarifying documentation. Please respond to the clarification below the line at the bottom and electronically sign. The CDI & [facility] Coding staff will review the response and follow-up if needed. Please note: Queries are made part of the Legal Health Record. If you have any questions, please contact the author of this message via ITS. Dr. Ramsey Ocasio The patient with documented small bowel perforation secondary to carcinomatosis. Patient with septic shock. Please clarify the cause of the septic shock. History/Risk Factors: Cardiac arrest, liver failure, acute respiratory failure intubated. Clinical Indicators: WBC 18.4 Lactic acid: 20.4 Blood cultures: positive for E coli and Alpha Hemolytic strep per lab Vitals signs on admission: 98.2 F , 96 bpm, 18, 132/78, 99 RA then 107 bpm, 28, 68/45 98 Other Clinical Indicators: Treatment: levofed, SB excision and ileostomy In your professional opinion, please clarify the cause of the septic shock: Condition small bowel perforation Other, please specify Unable to determine Identify the (suspected) organism SIRS Criteria (2 or more of the following may indicate SIRS): -Temperature < 96.8F (36C) or > 101.0F (38.3C) -Heart Rate > 90 bpm -Respiratory Rate > 20 breaths/min or PaCO2 < 32 mmHg -White Blood Cell Count > 12,000 or < 4,000 cells/mm3 or > 10% bands -Lactate >2.0 mmol/L (>4.0 is equivalent to septic shock) septic shock due to secondary peritonitis secondary to small bowel perforation MTDD
--- NOTE | 2019-11-25 08:56 | CDI ---
Documentation Clarification Form Date: 11/25/2019 07:51:00 AM From: Lexii Soto Phone: If you have a question about this query, please contact Allie Ford Magazine Designer at [phone] between 8am and 5pm. Admit Date: 11/18/2019 04:02:00 PM Patient Name: Princess Borja Visit Number: [id number] Discharge Date: 11/19/2019 07:10:00 AM ATTENTION: The Clinical Documentation Specialists (CDI) and [facility] Coding Staff appreciate your assistance in clarifying documentation. Please respond to the clarification below the line at the bottom and electronically sign. The CDI & [facility] Coding staff will review the response and follow-up if needed. Please note: Queries are made part of the Legal Health Record. If you have any questions, please contact the author of this message via ITS. Dr. Ramsey Ocasio Carcinomatosis is documented as cause of bowel perforation. Please clarify if the carcinomatosis is dissemnated malignancy or a secondary malignant neoplasm of retroperitoneum and peritoneum. Patient history/risk factors: SB perforation, GI bleed treated outpatient for 2 weeks, Septic shock from peritonitis Clinical Indicators: Radiology: ascites and pneumoperitoneum Vital Signs: 98.2 96 bpm, 18 132/78 99 RA patient in ER Respiratory arrest and CPR intubation Other Clinical Indicators: Treatment: Small bowel excision and ileostomy Consults: surgical consult and pulmonary Other treatment: In your professional opinion, can you please clarify carcinomatosis: Disseminated malignant neoplasm Secondary malignant neoplasm of retroperitoneum and peritoneum Other, please specify ____ Unable to determine Disseminated malignant neoplasm MTDD
== END 2019-11-19 07:10 | disposition expired | DRG 853 ==
LOC: EC 13:52 → 2SICU 16:02
PROVIDERS: ADMIT Hospitalist; ATTEND Hospitalist
PROC: 4A133J1 Monitoring of Arterial Pulse, Peripheral, Percutaneous Approach (ICD-10-PCS; 2019-11-18)
PROC: 04HY32Z Insertion of Monitoring Device into Lower Artery, Percutaneous Approach (ICD-10-PCS; 2019-11-18)
PROC: 4A133B1 Monitoring of Arterial Pressure, Peripheral, Percutaneous Approach (ICD-10-PCS; 2019-11-18)
PROC: 5A12012 Performance of Cardiac Output, Single, Manual (ICD-10-PCS; 2019-11-18)
PROC: 0BH17EZ Insertion of Endotracheal Airway into Trachea, Via Natural or Artificial Opening (ICD-10-PCS; 2019-11-18)
PROC: 5A1935Z Respiratory Ventilation, Less than 24 Consecutive Hours (ICD-10-PCS; 2019-11-18)
PROC: 3E033XZ Introduction of Vasopressor into Peripheral Vein, Percutaneous Approach (ICD-10-PCS; 2019-11-18)
PROC: 02HV33Z Insertion of Infusion Device into Superior Vena Cava, Percutaneous Approach (ICD-10-PCS; 2019-11-18)
PROC: 0D1B0Z4 Bypass Ileum to Cutaneous, Open Approach (ICD-10-PCS; principal; 2019-11-18 17:53)
PROC: 0DB80ZZ Excision of Small Intestine, Open Approach (ICD-10-PCS; principal; 2019-11-18 17:53)
DX: A41.9 Sepsis, unspecified organism (principal); K63.1 Perforation of intestine (nontraumatic); R65.21 Severe sepsis with septic shock; N17.0 Acute kidney failure with tubular necrosis; J96.01 Acute respiratory failure with hypoxia; R40.2112 Coma scale, eyes open, never, at arrival to emergency department; R40.2212 Coma scale, best verbal response, none, at arrival to emergency department; K65.8 Other peritonitis; E87.2 Acidosis; C80.0 Disseminated malignant neoplasm, unspecified; K56.7 Ileus, unspecified; R18.8 Other ascites; D68.9 Coagulation defect, unspecified; K92.1 Melena; I46.9 Cardiac arrest, cause unspecified; D25.9 Leiomyoma of uterus, unspecified; E16.2 Hypoglycemia, unspecified; E83.51 Hypocalcemia; K71.10 Toxic liver disease with hepatic necrosis, without coma; F32.9 Major depressive disorder, single episode, unspecified; I10 Essential (primary) hypertension; K74.60 Unspecified cirrhosis of liver; T17.918A Gastric contents in respiratory tract, part unspecified causing other injury, initial encounter; K40.90 Unilateral inguinal hernia, without obstruction or gangrene, not specified as recurrent; R40.2362 Coma scale, best motor response, obeys commands, at arrival to emergency department; I45.81 Long QT syndrome; R45.1 Restlessness and agitation; T39.1X Poisoning by, adverse effect of and underdosing of 4-Aminophenol derivatives; Z79.899 Other long term (current) drug therapy; Z86.73 Personal history of transient ischemic attack (TIA), and cerebral infarction without residual deficits; Z85.3 Personal history of malignant neoplasm of breast; Z90.12 Acquired absence of left breast and nipple; R68.0 Hypothermia, not associated with low environmental temperature; T39.1X5A Adverse effect of 4-Aminophenol derivatives, initial encounter
CPT/HCPCS: 31500; 36415; 36556; 70450; 71045; 74018; 74176; 80048; 80053; 80320; 80329; 82140; 82272; 82330; 82803; 82805; 83520; 83605; 83735; 83930; 84484; 85025; 85610; 85730; 86850; 86900; 86901; 86920; 87040; 87086; 88307; 92950; 93005; 94002; 94003; 96361; 96365; 96366; 96368; 96375; 99291